=== PATIENT | male | born 1945 | race Caucasian/White ===

== ENCOUNTER 2021-04-07 09:40 | Outpatient (REF) | payer MEDICARE, OTHER, SELFPAY | END 2021-04-07 09:41 | disposition home or self-care (01) | LOC: HO.LAB 09:40 | PROVIDERS: PCP Physician Assistant; Visit Provider Internal Medicine | DX: Z20.822 Contact with and (suspected) exposure to COVID-19 (principal) | CPT/HCPCS: C9803; U0003; U0005 ==

== ENCOUNTER 2024-04-16 23:59 | Outpatient (BNV) | payer MEDICARE, OTHER, SELFPAY | END 2024-04-17 23:59 | PROVIDERS: PCP Physician Assistant; Visit Provider Internal Medicine | DX: I67.9 Cerebrovascular disease, unspecified (principal); R53.1 Weakness | CPT/HCPCS: 99223 ==